=== PATIENT | female | born 1985 | race Two or more races ===

== ENCOUNTER 2021-10-20 13:43 | Emergency (ER) | payer OTHER ==
[~2021-10-20] VITALS: Ht 165.1 cm; Wt 77.1 kg
[2021-10-20] MEDS ORDERED: PERCOCET 5-3251 EACH PO (18:19)
== END 2021-10-20 18:24 | disposition home or self-care (01) ==
LOC: ER 13:43
DX: S82.61XA Displaced fracture of lateral malleolus of right fibula, initial encounter for closed fracture (principal); S90.31XA Contusion of right foot, initial encounter; W22.8XXA Striking against or struck by other objects, initial encounter; Y93.89 Activity, other specified; Y92.89 Other specified places as the place of occurrence of the external cause